=== PATIENT | female | born 1990 | race American Indian/Alaskan Native ===

== ENCOUNTER 2017-02-08 14:23 | Emergency (ER) | payer SELFPAY ==
--- NOTE | 2017-02-08 19:54 | Emergency Department Report ---
ED Lower Extremity HPI - General Chief Complaint: Extremity Injury, Lower Stated Complaint: BROKEN TOE Time Seen by Provider: 02/08/17 19:54 Source: patient Mode of arrival: Wheelchair Limitations: No Limitations - History of Present Illness Initial Comments: 27-year-old female presents to emergency room with right second toe injury a few hours ago. Patient was trying to move clothes, laundry stubbed her toe against laundry machine. There is some bruising and pain to her right second toe. Denies any numbness or tingling. Complaint: foot injury (right 2nd toe) -: Gradual, hour(s) (few) Injury: Foot: Right, Toes: Right (2nd toe) Type of Injury: hyperextension Place: home Severity: mild Severity scale (0 -10): 2 Improves With: nothing Worsens With: movement Associated Symptoms: swelling Treatments Prior to Arrival: cold therapy - Related Data Previous Rx's Medication Instructions Recorded Last Taken Type Amoxicillin [Amoxicillin TAB] 875 mg PO BID #20 tablet 11/22/15 Unknown Rx Fluticasone [Flonase] 1 spray NS QDAY #1 bottle 11/22/15 Unknown Rx predniSONE [Deltasone] 50 mg PO QDAY #5 tab 11/22/15 Unknown Rx Diclofenac Sodium 75 mg PO BID #20 tablet. 02/08/17 Unknown Rx traMADol [Ultram] 50 mg PO Q6HR PRN #12 tablet 02/08/17 Unknown Rx Allergies Allergy/AdvReac Type Severity Reaction Status Date / Time No Known Allergies Allergy Unverified 02/08/17 15:19 ED Review of Systems ROS: Stated complaint: BROKEN TOE Other details as noted in HPI Comment: All other systems reviewed and negative Constitutional: denies: chills, fever Eyes: denies: eye pain, eye discharge, vision change ENT: denies: ear pain, throat pain Respiratory: denies: cough, shortness of breath, wheezing Cardiovascular: denies: chest pain, palpitations Endocrine: no symptoms reported Gastrointestinal: denies: abdominal pain, nausea, diarrhea Genitourinary: denies: urgency, dysuria, discharge Musculoskeletal: other (right 2nd toe pain). denies: back pain, joint swelling , arthralgia Skin: as per HPI. denies: rash, lesions Neurological: denies: headache, weakness, paresthesias Psychiatric: denies: anxiety, depression Hematological/Lymphatic: denies: easy bleeding, easy bruising ED Past Medical Hx - Past Medical History Previous Medical History?: No - Surgical History Past Surgical History?: No - Social History Smoking Status: Never Smoker Substance Use Type: Alcohol - Medications Home Medications: Home Medications Medication Instructions Recorded Confirmed Last Taken Type Amoxicillin [Amoxicillin TAB] 875 mg PO BID #20 tablet 11/22/15 Unknown Rx Fluticasone [Flonase] 1 spray NS QDAY #1 bottle 11/22/15 Unknown Rx predniSONE [Deltasone] 50 mg PO QDAY #5 tab 11/22/15 Unknown Rx Diclofenac Sodium 75 mg PO BID #20 tablet.dr 02/08/17 Unknown Rx traMADol [Ultram] 50 mg PO Q6HR PRN #12 tablet 02/08/17 Unknown Rx ED Physical Exam - General Limitations: No Limitations General appearance: alert, in no apparent distress - Head Head exam: Present: atraumatic, normocephalic - Eye Eye exam: Present: normal appearance - ENT ENT exam: Present: mucous membranes moist - Neck Neck exam: Present: normal inspection - Respiratory Respiratory exam: Present: normal lung sounds bilaterally. Absent: respiratory distress - Cardiovascular Cardiovascular Exam: Present: regular rate, normal rhythm. Absent: systolic murmur, diastolic murmur, rubs, gallop - GI/Abdominal GI/Abdominal exam: Present: soft, normal bowel sounds - Extremities Exam Extremities exam: Present: normal inspection - Expanded Lower Extremity Exam Right Hip exam: Present: normal inspection, full ROM Upper Leg exam: Present: normal inspection, full ROM Knee exam: Present: normal inspection, full ROM Lower Leg exam: Present: normal inspection, full ROM Ankle exam: Present: normal inspection, full ROM Foot/Toe exam: Present: tenderness, swelling, ecchymosis (right 2nd toe) Neuro vascular tendon exam: Present: no vascular compromise - Back Exam Back exam: Present: normal inspection - Neurological Exam Neurological exam: Present: alert, oriented X3 - Psychiatric Psychiatric exam: Present: normal affect, normal mood - Skin Skin exam: Present: warm, dry, intact, normal color. Absent: rash ED Course Vital Signs 02/08/17 02/08/17 15:17 20:23 Temperature 98.4 F Pulse Rate 79 Respiratory 16 18 Rate Blood Pressure 120/80 O2 Sat by Pulse 100 Oximetry - Reevaluation(s) Reevaluation #1: Right second and first toes were sreedhar taped together patient was given postop shoe in the emergency room and [place] for pain. Patient comfortable. Vital signs stable. 02/08/17 20:43 - Orthopedic Splinting/Casting Injury #1 Side: right Lower Extremity Injury Location: toe (2nd) Lower Extremity Immobilizer: post-op shoe, sreedhar tape ED Lower Extremity MDM - Radiology Data Radiology results: report reviewed, image reviewed (non-displace right 2nd toe fracture) Critical care attestation.: If time is entered above; I have spent that time in minutes in the direct care of this critically ill patient, excluding procedure time. ED Disposition Clinical Impression: Nondisplaced fracture of lesser toe of right foot Qualifiers: Encounter type: initial encounter Fracture type: closed Phalanx: proximal Qualified Code(s): S92.514A - Nondisplaced fracture of proximal phalanx of right lesser toe(s), initial encounter for closed fracture Disposition: DISCHARGED TO HOME OR SELFCARE Is pt being admited?: No Does the pt Need Aspirin: No Condition: Good Instructions: Toe Fracture (ED) Prescriptions: Diclofenac Sodium 75 mg PO BID #20 tablet. traMADol [Ultram] 50 mg PO Q6HR PRN #12 tablet PRN Reason: Pain Referrals: WU DAWKINS MD [Staff Physician] - 3-5 Days
[2017-02-08] MEDS ORDERED: NORCO 5/325 PO ONE (19:55)
[2017-02-08 21:29] VITALS: BP 118/74
--- NOTE | 2017-02-09 10:53 | XRay Report ---
RIGHT FOOT THREE VIEWS: 02/08/17 19:54:00 CLINICAL: Trauma and pain. FINDINGS: No fracture or dislocation. Mild soft tissue swelling of the dorsum of the forefoot and midfoot in the plantar aspect of the forefoot. No soft tissue air or foreign body. IMPRESSION: Soft tissue swelling but otherwise normal.
== END 2017-02-08 21:28 | disposition home or self-care (01) ==
LOC: ED 14:23
DX: S92.514A Nondisplaced fracture of proximal phalanx of right lesser toe(s), initial encounter for closed fracture (principal); W20.8XXA Other cause of strike by thrown, projected or falling object, initial encounter; Y93.9 Activity, unspecified; Y92.9 Unspecified place or not applicable; Y99.9 Unspecified external cause status
CPT/HCPCS: 99283

== ENCOUNTER 2021-02-14 12:28 | Emergency (ER) | payer MEDICAID ==
[2021-02-14 14:01] LABS: Basophils % (Auto) 0.4 % (0.0-1.8); Eosinophils # (Auto) 0.1 K/mm3 (0.0-0.4); Eosinophils % (Auto) 1.5 % (0.0-4.3); Hematocrit 36.8 % (30.3-42.9); Hemoglobin 12.5 gm/dl (10.1-14.3); Lymphocytes # (Auto) 1.8 K/mm3 (1.2-5.4); Lymphocytes % (Auto) 25.3 % (13.4-35.0); Mean Corpuscular HGB Conc 34 % (30-34); Mean Corpuscular Volume 91 fl (79-97); Monocytes # (Auto) 0.6 K/mm3 (0.0-0.8); Monocytes % (Auto) 7.9 % (0.0-7.3); Platelet Count 305 K/mm3 (140-440); Red Blood Count 4.06 M/mm3 (3.65-5.03); Red Cell Distribution Width 15.1 % (13.2-15.2)
--- NOTE | 2021-02-14 14:23 | Ultrasound Report ---
ULTRASOUND ABDOMEN, LIMITED (RIGHT UPPER QUADRANT) INDICATION: RUQ abd pain. COMPARISON: None available. FINDINGS: Pancreas: Visualized portion shows no significant abnormality. Liver: No significant abnormality. Gallbladder: No significant abnormality. Sonographic Sutton's sign: Not performed. Bile ducts: No significant abnormality. Common Bile Duct measures 2.3 mm. Free fluid: None. Additional Findings: None. IMPRESSION: 1. No sonographic abnormality of the right upper quadrant. Signer Name: Brandin Hurtado MD Signed: 02/14/2021 2:19 PM Workstation Name: [id number]
[2021-02-14 14:24] LABS: Alanine Aminotransferase 12 units/L (7-56); BUN/Creatinine Ratio 6; Blood Urea Nitrogen 5 mg/dL (7-17); Hemolysis Index 0
--- NOTE | 2021-02-14 14:29 | Emergency Department Report ---
ED Abdominal Pain HPI - General Chief Complaint: Abdominal Pain Stated Complaint: FLANK PAIN Time Seen by Provider: 02/14/21 12:47 Source: patient Mode of arrival: Ambulatory Limitations: No Limitations - History of Present Illness Initial Comments: Patient is a 31-year-old female presents emergency room complaints of right upper quadrant abdominal pain that radiates to her back that began a week ago. She states it feels like a dull ache. She states occasionally it is worse after eating. She states that she believed it was gas pain and has been taking Gas-X [id number]. She states that she was also constipated but use the medication and is now having normal bowel movements. She denies any fever, nausea, vomiting, diarrhea, hematochezia, melena, hematemesis, abnormal vaginal discharge, urinary symptoms. No past medical history. No allergies to medications. - Related Data Previous Rx's Medication Instructions Recorded Last Taken Type Amoxicillin [Amoxicillin TAB] 875 mg PO BID #20 tablet 11/22/15 Unknown Rx Fluticasone [Flonase] 1 spray NS QDAY #1 bottle 11/22/15 Unknown Rx predniSONE [Deltasone] 50 mg PO QDAY #5 tab 11/22/15 Unknown Rx Diclofenac Sodium 75 mg PO BID #20 tablet. 02/08/17 Unknown Rx traMADoL [Ultram] 50 mg PO Q6HR PRN #12 tablet 02/08/17 Unknown Rx Mag Hydrox/Aluminum Hyd/Simeth 10 ml PO QID PRN #1 bottle 02/14/21 Unknown Rx [Maalox Advanced Suspension] Naproxen [EC-Naprosyn] 500 mg PO BID PRN #14 tablet. 02/14/21 Unknown Rx cephALEXin [Keflex] 500 mg PO BID 7 Days #14 cap 02/14/21 Unknown Rx Allergies Allergy/AdvReac Type Severity Reaction Status Date / Time No Known Allergies Allergy Unverified 02/08/17 15:19 ED Review of Systems ROS: Stated complaint: FLANK PAIN Other details as noted in HPI Comment: All other systems reviewed and negative ED Past Medical Hx - Past Medical History Previous Medical History?: No - Surgical History Past Surgical History?: No - Social History Smoking Status: Never Smoker Substance Use Type: None - Medications Home Medications: Home Medications Medication Instructions Recorded Confirmed Last Taken Type Amoxicillin [Amoxicillin TAB] 875 mg PO BID #20 tablet 11/22/15 Unknown Rx Fluticasone [Flonase] 1 spray NS QDAY #1 bottle 11/22/15 Unknown Rx predniSONE [Deltasone] 50 mg PO QDAY #5 tab 11/22/15 Unknown Rx Diclofenac Sodium 75 mg PO BID #20 tablet. 02/08/17 Unknown Rx traMADoL [Ultram] 50 mg PO Q6HR PRN #12 tablet 02/08/17 Unknown Rx Mag Hydrox/Aluminum Hyd/Simeth 10 ml PO QID PRN #1 bottle 02/14/21 Unknown Rx [Maalox Advanced Suspension] Naproxen [EC-Naprosyn] 500 mg PO BID PRN #14 tablet. 02/14/21 Unknown Rx cephALEXin [Keflex] 500 mg PO BID 7 Days #14 cap 02/14/21 Unknown Rx ED Physical Exam - General Limitations: No Limitations General appearance: alert, in no apparent distress - Head Head exam: Present: atraumatic, normocephalic - Eye Eye exam: Present: normal appearance - ENT ENT exam: Present: mucous membranes moist - Respiratory Respiratory exam: Present: normal lung sounds bilaterally. Absent: respiratory distress, wheezes, rales, rhonchi, stridor, chest wall tenderness, accessory muscle use, decreased breath sounds, prolonged expiratory - Cardiovascular Cardiovascular Exam: Present: regular rate, normal rhythm, normal heart sounds. Absent: systolic murmur, diastolic murmur, rubs, gallop - GI/Abdominal GI/Abdominal exam: Present: soft, tenderness (mild RUQ, negative murphys sign), normal bowel sounds. Absent: distended, guarding, rebound, rigid - Neurological Exam Neurological exam: Present: alert, oriented X3 - Psychiatric Psychiatric exam: Present: normal affect, normal mood - Skin Skin exam: Present: warm, dry, intact ED Course Vital Signs 02/14/21 02/14/21 12:52 15:00 Pulse Rate 103 H 70 Respiratory 16 16 Rate Blood Pressure 135/100 116/68 [Right] O2 Sat by Pulse 100 100 Oximetry ED Medical Decision Making - Lab Data Result diagrams: 02/14/21 13:15 02/14/21 13:15 Labs 02/14/21 02/14/21 02/14/21 13:15 13:15 13:15 WBC 7.0 RBC 4.06 Hgb 12.5 Hct 36.8 MCV 91 MCH 31 MCHC 34 RDW 15.1 Plt Count 305 Lymph % (Auto) 25.3 [place] % (Auto) 7.9 H Eos % (Auto) 1.5 Baso % (Auto) 0.4 Lymph # (Auto) 1.8 [place] # (Auto) 0.6 Eos # (Auto) 0.1 Baso # (Auto) 0.0 Seg Neutrophils % 64.9 Seg Neutrophils # 4.5 Sodium 137 Potassium 3.7 Chloride 101.8 Carbon Dioxide 28 Anion Gap 11 BUN 5 L Creatinine 0.9 Estimated GFR > 60 BUN/Creatinine Ratio 6 Glucose 100 Calcium 9.0 Total Bilirubin 0.50 AST 16 ALT 12 Alkaline Phosphatase 49 Total Protein 7.2 Albumin 4.0 Albumin/Globulin Ratio 1.3 Lipase 33 HCG, Qual Negative Urine Color Urine Turbidity Urine pH Ur Specific [place] Urine Protein Urine Glucose (UA) Urine Ketones Urine Blood Urine Nitrite Urine Bilirubin Urine Urobilinogen Ur Leukocyte Esterase Urine WBC (Auto) Urine RBC (Auto) U Epithel Cells (Auto) Urine Bacteria (Auto) Urine Mucus 02/14/21 Unknown WBC RBC Hgb Hct MCV MCH MCHC RDW Plt Count Lymph % (Auto) [place] % (Auto) Eos % (Auto) Baso % (Auto) Lymph # (Auto) [place] # (Auto) Eos # (Auto) Baso # (Auto) Seg Neutrophils % Seg Neutrophils # Sodium Potassium Chloride Carbon Dioxide Anion Gap BUN Creatinine Estimated GFR BUN/Creatinine Ratio Glucose Calcium Total Bilirubin AST ALT Alkaline Phosphatase Total Protein Albumin Albumin/Globulin Ratio Lipase HCG, Qual Urine Color Red Urine Turbidity Hazy Urine pH 6.0 Ur Specific [place] 1.004 Urine Protein 100 mg/dl Urine Glucose (UA) 50 Urine Ketones Neg Urine Blood Lg Urine Nitrite Neg Urine Bilirubin Neg Urine Urobilinogen < 2.0 Ur Leukocyte Esterase Mod Urine WBC (Auto) 102.0 H Urine RBC (Auto) 77.0 U Epithel Cells (Auto) 3.0 Urine Bacteria (Auto) 3+ Urine Mucus Few Vital Signs 02/14/21 02/14/21 12:52 15:00 Pulse Rate 103 H 70 Respiratory 16 16 Rate Blood Pressure 135/100 116/68 [Right] O2 Sat by Pulse 100 100 Oximetry - Radiology Data Radiology results: report reviewed Ordering Physician: JOSE LOPEZ Date of Service: 02/14/21 Procedure(s): US abdomen limited Accession Number(s): [id number] cc: JOSE LOPEZ ULTRASOUND ABDOMEN, LIMITED (RIGHT UPPER QUADRANT) INDICATION: RUQ abd pain. COMPARISON: None available. FINDINGS: Pancreas: Visualized portion shows no significant abnormality. Liver: No significant abnormality. Gallbladder: No significant abnormality. Sonographic Sutton's sign: Not performed. Bile ducts: No significant abnormality. Common Bile Duct measures 2.3 mm. Free fluid: None. Additional Findings: None. IMPRESSION: 1. No sonographic abnormality of the right upper quadrant. Signer Name: Brandin Hurtado MD Signed: 02/14/2021 2:19 PM Workstation Name: [id number] Transcribed By: [place] Dictated By: Brandin Hurtado MD Electronically Authenticated By: Brandin Hurtado MD Signed Date/Time: 02/14/211418 DD/ 08 TD/TT: Print - Medical Decision Making Patient is a 31-year-old female presents emergency room complaints of right upper quadrant abdominal pain that radiates to her back that began a week ago. She states it feels like a dull ache. She states occasionally it is worse after eating. She states that she believed it was gas pain and has been taking Gas-X [id number]. She states that she was also constipated but use the medica tion and is now having normal bowel movements. She denies any fever, nausea, vomiting, diarrhea, hematochezia, melena, hematemesis, abnormal vaginal discharge, urinary symptoms. No past medical history. No allergies to medications. Vitals are stable. On exam patient has mild right upper quadrant tenderness palpation, no guarding, No rigidity, normal bowel sounds, no peritoneal signs, negative Sutton sign. Labs are normal. UA shows evidence of UTI. Right upper quadrant ultrasound: 1. No sonographic abnormality of the right upper quadrant. Discussed all results with patient and answered questions. Symptoms could be related to gas pain versus PUD versus GERD. Patient will also be covered for UTI with antibiotics. Patient be referred to primary care doctor and GI. Patient given prescription for Keflex, naproxen, Maalox. Advised patient please take medication as prescribed. Increase your water intake. Follow-up with a primary care doctor. follow up with a GI doctor. Return to emergency room for any worsening symptoms. Critical care attestation.: If time is entered above; I have spent that time in minutes in the direct care of this critically ill patient, excluding procedure time. ED Disposition Clinical Impression: Abdominal pain Qualifiers: Abdominal location: right upper quadrant Qualified Code(s): R10.11 - Right upper quadrant pain UTI (urinary tract infection) Qualifiers: Urinary tract infection type: acute cystitis Hematuria presence: with hematuria Qualified Code(s): N30.01 - Acute cystitis with hematuria Disposition: TO HOME OR SELFCARE Is pt being admited?: No Does the pt Need Aspirin: No Condition: Stable Instructions: Abdominal Pain, Adult, Urinary Tract Infection, Adult, [id number], Abdominal Pain (ED) Additional Instructions: please take medication as prescribed. Increase your water intake. Follow-up with a primary care doctor. follow up with a GI doctor. Return to emergency room for any worsening symptoms. Prescriptions: Naproxen [EC-Naprosyn] 500 mg PO BID PRN #14 tablet.dr PRN Reason: pain cephALEXin [Keflex] 500 mg PO BID 7 Days #14 cap Mag Hydrox/Aluminum Hyd/Simeth [Maalox Advanced Suspension] 10 ml PO QID PRN #1 bottle PRN Reason: gas/pain Referrals: [facility] [Provider Group] - 2-3 Days CRAIG HINOJOSA MD [Staff Physician] - 2-3 Days [facility] [Provider Group] - 2-3 Days Time of Disposition: 14:59 Print Language: GREENLAND[place]
[2021-02-14 14:32] LABS: Bacteria,Urine 3+ /HPF (Negative); Bilirubin,Urine NEG (Negative); Blood,Urine LG (Negative); Color,Urine Red (Yellow); Mucus,Urine FEW /HPF; Urobilinogen,Urine < 2.0 mg/dL (<2.0)
[2021-02-14 17:01] VITALS: BP 116/68
== END 2021-02-14 15:00 | disposition home or self-care (01) ==
LOC: ED 12:28
DX: N39.0 Urinary tract infection, site not specified (principal); R10.11 Right upper quadrant pain; Z79.2 Long term (current) use of antibiotics; Z79.899 Other long term (current) drug therapy
CPT/HCPCS: 36415; 76705; 80053; 81001; 83690; 84703; 85025; 87086